=== PATIENT | female | born 1985 ===

== ENCOUNTER → 2025-06-06 | Outpatient (REF) ==
[2025-06-09 15:17] LABS: HERPES ZOSTER, VARICELLA IgG 3.75 S/CO (>=1.00)
== END ==
LOC: M LAB 14:24
PROVIDERS: ATTEND Family Medicine
DX: Z02.79 Encounter for issue of other medical certificate (principal)

== ENCOUNTER → 2025-06-30 | Outpatient (REF) | LOC: M LAB 15:52 | PROVIDERS: ATTEND Family Medicine | DX: Z01.84 Encounter for antibody response examination (principal) ==